=== PATIENT | female | born 1990 | race Caucasian/White ===

== ENCOUNTER → 2019-02-18 | Outpatient (CLI) | payer OTHER ==
--- NOTE | 2019-02-18 15:11 | Diagnostic Imaging Report ---
PROCEDURE: US Non-ob pelvis comp/trans. TECHNIQUE: Multiple realtime grayscale images were obtained of the pelvis in various projections endovaginally. Transabdominal imaging was also performed. INDICATION: Dyspareunia. FINDINGS: Uterus measures 7.4 x 5.8 x 3.7 cm. Endometrium is 3 mm in thickness. No myometrial mass is detected. Right ovary measures 4.3 x 3.0 x 2.4 cm and the left ovary measures 3.9 x 3.3 x 2.1 cm. There is blood flow to both ovaries. There are small partially collapsed cysts involving the right ovary approximately 12 mm and 15 mm in size. No adnexal mass or free fluid is seen. IMPRESSION: Essentially unremarkable pelvic ultrasound. Dictated by: Dictated on workstation # [id number]
== END ==
LOC: RAD 11:34
PROVIDERS: ATTEND Obstetrics & Gynecology
DX: N94.10 Unspecified dyspareunia (principal); N93.9 Abnormal uterine and vaginal bleeding, unspecified
CPT/HCPCS: 76830; 76856

== ENCOUNTER → 2019-09-23 | Outpatient (CLI) | payer OTHER ==
[2019-09-23 09:18] LABS: BILIRUBIN,URINE NEGATIVE (NEGATIVE); CLARITY,URINE CLEAR; COLOR,URINE YELLOW; GLUCOSE, URINE (UA) NEGATIVE (NEGATIVE); KETONES,URINE NEGATIVE (NEGATIVE); LEUKOCYTE ESTERASE ,URINE NEGATIVE (NEGATIVE); NITRITE,URINE NEGATIVE (NEGATIVE); PH,URINE 6.5 (5-9); PROTEIN,URINE NEGATIVE (NEGATIVE)
[2019-09-23 09:19] LABS: BACTERIA,URINE TRACE /HPF; RBC,URINE RARE /HPF; SQUAMOUS EPITHELIAL CELL,UR RARE /HPF; WBC,URINE RARE /HPF
== END ==
LOC: LAB FS 08:49
PROVIDERS: ATTEND Obstetrics & Gynecology
DX: R39.15 Urgency of urination (principal)
CPT/HCPCS: 81000; 87077; 87088

== ENCOUNTER → 2019-10-28 | Outpatient (CLI) | payer OTHER ==
--- NOTE | 2019-10-28 17:10 | Diagnostic Imaging Report ---
INDICATION: survey. TECHNIQUE: Multiple real-time grayscale images were obtained over the gravid uterus. COMPARISON: None FINDINGS: There is a single live fetus in breech presentation. heart rate was recorded at 132 bpm. Placenta is anterior. Amniotic fluid volume is normal. Cervical length is 3.7 cm. survey demonstrates kidneys, bladder and stomach to be unremarkable. brain is unremarkable. There is a four-chamber heart. There is a three-vessel cord with normal insertion. spine is unremarkable. Biometrical measurements are as follows: Biparietal 4.80 cm, age 20 weeks 4 days. Head circumference 19.54 cm, age 21 weeks 6 days. Abdominal circumference 15.96 cm, age 21 weeks 1 days. Femur length 3.52 cm, age 21 weeks 1 days. Sonographic estimate age: 21 weeks 2 days. Sonographic estimated date of delivery: 03/07/20. Estimated Weight: 402 gm (+/- 59 gm). LMP percentile: 60%. heart rate: 132 beats per minute. number: 1 of 1. IMPRESSION: Single live IUP 21 weeks 2 days gestational age. The estimated date of confinement sonographically is 03/07/2020. Dictated by: Dictated on workstation # [id number]
== END ==
LOC: RAD 14:39
PROVIDERS: ATTEND Obstetrics & Gynecology
DX: Z36.89 Encounter for other specified antenatal screening (principal); Z3A.21 21 weeks gestation of pregnancy
CPT/HCPCS: 76805

== ENCOUNTER → 2020-01-04 | Outpatient (CLI) | payer OTHER ==
[2020-01-04 17:23] LABS: URINE CREATININE FOR RATIO 58 MG/DL (30-125); URINE PROTEIN FOR RATIO ONLY < 6 MG/DL (6-12)
== END ==
LOC: LABNPT 17:02
PROVIDERS: ATTEND Obstetrics & Gynecology
DX: O13.9 Gestational [pregnancy-induced] hypertension without significant proteinuria, unspecified trimester (principal)
CPT/HCPCS: 82570; 84156

== ENCOUNTER → 2020-02-09 | Outpatient (CLI) | payer OTHER ==
[~2020-02-09] MED LIST: LABE200T7 PO; LEVO25TA5 PO
[2020-02-09 17:02] LABS: URINE CREATININE FOR RATIO 53 MG/DL (30-125)
[2020-02-09 17:03] LABS: URINE PROTEIN FOR RATIO ONLY < 6 MG/DL (6-12)
== END ==
LOC: LABNPT 16:10
PROVIDERS: ATTEND Obstetrics & Gynecology
DX: O13.4 Gestational [pregnancy-induced] hypertension without significant proteinuria, complicating childbirth (principal)
CPT/HCPCS: 82570; 84156

== ENCOUNTER 2020-02-10 19:36 | Outpatient (CLI) | payer OTHER ==
[~2020-02-10] VITALS: Ht 175.3 cm; Wt 151.3 kg
--- NOTE | 2020-02-10 19:30 | NUR ---
REBEKAH CORLEY presented to unit via AMBULATORY from ED, accompanied by ADULT MALE, with c/o INCREASED BP. REBEKAH CORLEY weighed, gowned, voided, and to bed. EFHM and TOCO applied, VS taken. REBEKAH CORLEY oriented to bed controls, call light, TV, heat, and A/C controls. above and further assessments carried out per PRECIOUS RYAN
[2020-02-10] MEDS ORDERED: LABE200T7 PO ×2 (19:41)
[2020-02-10] MEDS ORDERED: LEVO25TA5 PO ×2 (19:45)
[2020-02-10 19:52] LABS: BILIRUBIN,URINE NEGATIVE (NEGATIVE); CLARITY,URINE CLEAR; COLOR,URINE YELLOW; GLUCOSE, URINE (UA) NEGATIVE (NEGATIVE); KETONES,URINE NEGATIVE (NEGATIVE); LEUKOCYTE ESTERASE ,URINE NEGATIVE (NEGATIVE); NITRITE,URINE NEGATIVE (NEGATIVE); PROTEIN,URINE NEGATIVE (NEGATIVE)
[2020-02-10 19:57] LABS: BACTERIA,URINE FEW /HPF; WBC,URINE 0-2 /HPF
[2020-02-10 19:58] VITALS: BP 161/95
[2020-02-10 20:10] VITALS: BP 148/83
--- NOTE | 2020-02-10 20:24 | NUR ---
Dr. Hart called about pt. Informed that pt presents because of elevated blood pressures. Home and current vitals and B/P's reviewed. Informed that pt has no other symptoms of elevated B/P's. Informed that pt was seen in the office yesterday and Dr. Haywood ran pre-eclamptic panal and urine, and pt states that "nurse called and said that all labs were good." Dr. Haywood placed pt on labetalol 200mg TID. Dr. Hart orders pt to have evening dose of Labetalol and to check B/P approx 30 minutes after dose. Continue to watch pt at this time.
[2020-02-10] MEDS ORDERED: LABETALOL 200 MG (NORMODYNE) TAB PO ONE ×2 (20:30)
--- NOTE | 2020-02-10 22:03 | NUR ---
called unit, requesting bp be taken and dr updated. 2206: notified of 164/91 bp and pulse 64 plan for pt to stay all night, regular diet and lab work.
[2020-02-10 22:05] VITALS: BP 164/91
[2020-02-10 22:22] VITALS: BP 174/98
[2020-02-10 23:17] LABS: BASOPHILS % (AUTO) 0 % (0-10); EOSINOPHILS % (AUTO) 0 % (0-10); HEMATOCRIT 35 % (35-52); HEMOGLOBIN 11.9 g/dL (11.5-16.0); LYMPHOCYTES # (AUTO) 1.9 10^3/uL (1.0-4.0); LYMPHOCYTES % (AUTO) 22 % (12-44); MEAN CORPUSCULAR HEMOGLOBIN 29 pg (25-34); MEAN CORPUSCULAR HGB CONC 34 g/dL (32-36); MEAN CORPUSCULAR VOLUME 86 fL (80-99); MEAN PLATELET VOLUME 11.6 fL (9.0-12.2); MONOCYTES # (AUTO) 0.6 10^3/uL (0.0-1.0); MONOCYTES % (AUTO) 7 % (0-12); NEUTROPHILS % (AUTO) 71 % (42-75); PLATELET COUNT 173 10^3/uL (130-400); WHITE BLOOD COUNT 8.5 10^3/uL (4.3-11.0)
[2020-02-10 23:25] VITALS: BP 139/83
[2020-02-10 23:25] LABS: ALBUMIN 3.1 GM/DL (3.2-4.5); CHLORIDE 108 MMOL/L (98-107); POTASSIUM 3.6 MMOL/L (3.6-5.0); SODIUM 138 MMOL/L (135-145)
[2020-02-10 23:26] LABS: CALCIUM 8.6 MG/DL (8.5-10.1)
[2020-02-10 23:27] LABS: GLUCOSE 86 MG/DL (70-105); TOTAL PROTEIN 6.1 GM/DL (6.4-8.2)
[2020-02-10 23:29] LABS: BILIRUBIN,TOTAL 0.3 MG/DL (0.1-1.0); CARBON DIOXIDE 19 MMOL/L (21-32)
[2020-02-10 23:31] LABS: ALKALINE PHOSPHATASE 81 U/L (40-136); CREATININE SERUM 0.72 MG/DL (0.60-1.30); GFR ESTIMATED > 60
[2020-02-10 23:32] LABS: BUN/CREATININE RATIO 13
[2020-02-10 23:34] LABS: ALANINE AMINOTRANSFERASE 25 U/L (0-55); URIC ACID 6.7 MG/DL (2.6-7.2)
[2020-02-11] VITALS (9 sets, daily range): BP systolic 113–174; BP diastolic 69–105
--- NOTE | 2020-02-11 06:46 | NUR ---
Dr. Hart called with updated B/P's throughout the night and protein creatinine ratio. states that she will contact Dr. Haywood for further management and that pt. needs to start labetalol 200mg BID while she is here.
--- NOTE | 2020-02-11 07:09 | NUR ---
Dr. Hart called and states that pt can be discharged on bedrest. Pt. should keep her appointment with Dr. Haywood this week and continue medications.
--- NOTE | 2020-02-11 07:45 | NUR ---
Discharge instructions explained, signed and copy to patient. pt verbalized understanding of instructions and questions answered. Pt up to get dressed.
--- NOTE | 2020-02-11 07:50 | NUR ---
Discharged to home. Ambulates self downstairs to private vehicle with belongings in hand. Accompanied by s.o.
--- NOTE | 2020-02-13 09:19 | Physician Query-Final Dx ---
Clinic Account Progress/Dx Physician Query: Please give diagnosis Please include # weeks gestation Date of Service Feb 10, 2020 at 19:36 EUGENE HUSSEIN Feb 13, 2020 09:19
== END 2020-02-11 07:50 | disposition home or self-care (01) ==
LOC: WSo 19:36 → LDRP 02-11 07:43 → WSo 02-11 07:50
PROVIDERS: ATTEND Obstetrics & Gynecology
DX: Z34.90 Encounter for supervision of normal pregnancy, unspecified, unspecified trimester (principal); Z3A.00 Weeks of gestation of pregnancy not specified
CPT/HCPCS: 36415; 80053; 81000; 82570; 83615; 84156; 84550; 85025; 87088; 99213

== ENCOUNTER 2020-02-19 18:29 | Inpatient (IN) | payer OTHER ==
[2020-02-19] VITALS (9 sets, daily range): BP systolic 152–182; BP diastolic 93–128
[~2020-02-19] VITALS: Ht 175.3 cm; Wt 150.9 kg
--- NOTE | 2020-02-19 18:45 | NUR ---
REBEKAH CORLEY presented to unit via ambulation from ED, accompanied by ,for scheduled IOL. Pt. weighed, gowned, voided, and to bed. EFHM and TOCO applied, VS taken. Pt. oriented to bed controls, call light, TV, heat, and A/C controls.
--- NOTE | 2020-02-19 19:00 | NUR ---
admission paperwork explained and filled out.
--- NOTE | 2020-02-19 19:12 | NUR ---
report given to SHELBY New.
[2020-02-19] MEDS ORDERED: D5 LR IV SOLUTION 1,000 ML IV ONE (19:14)
[2020-02-19] MEDS ORDERED: AMPICILLIN FOR IV USE 2,000 MG in WATER (STERILE) FOR INJECTION 14.8 ML IV SCH (19:43)
[2020-02-19] MEDS ORDERED: MISOPROSTOL 100 MCG (CYTOTEC) TAB PO ONE (19:45)
[2020-02-19] MEDS ORDERED: LIDOCAINE/EPI 2% 1:200,00 (XYLOCAINE) 10 ML VIAL INJ PRN (19:45)
[2020-02-19 19:50] LABS: BASOPHILS % (AUTO) 0 % (0-10); EOSINOPHILS % (AUTO) 0 % (0-10); HEMATOCRIT 37 % (35-52); HEMOGLOBIN 12.8 g/dL (11.5-16.0); LYMPHOCYTES # (AUTO) 1.6 10^3/uL (1.0-4.0); LYMPHOCYTES % (AUTO) 18 % (12-44); MEAN CORPUSCULAR HEMOGLOBIN 29 pg (25-34); MEAN CORPUSCULAR HGB CONC 34 g/dL (32-36); MEAN CORPUSCULAR VOLUME 85 fL (80-99); MONOCYTES # (AUTO) 0.6 10^3/uL (0.0-1.0); MONOCYTES % (AUTO) 6 % (0-12); NEUTROPHILS % (AUTO) 76 % (42-75); PLATELET COUNT 191 10^3/uL (130-400); WHITE BLOOD COUNT 9.3 10^3/uL (4.3-11.0)
[2020-02-19] MEDS ORDERED: MISOPROSTOL 100 MCG (CYTOTEC) TAB ONE (20:00)
[2020-02-19] MEDS ORDERED: LABETALOL 200 MG (NORMODYNE) TAB PO ONE (20:01)
[2020-02-19 20:02] LABS: BILIRUBIN,URINE NEGATIVE (NEGATIVE); CLARITY,URINE CLEAR; COLOR,URINE YELLOW; GLUCOSE, URINE (UA) NEGATIVE (NEGATIVE); KETONES,URINE NEGATIVE (NEGATIVE); LEUKOCYTE ESTERASE ,URINE NEGATIVE (NEGATIVE); NITRITE,URINE NEGATIVE (NEGATIVE); PROTEIN,URINE 2+ (NEGATIVE)
[2020-02-19 20:05] LABS: ALANINE AMINOTRANSFERASE 20 U/L (0-55); ALBUMIN 3.3 GM/DL (3.2-4.5); ALKALINE PHOSPHATASE 94 U/L (40-136); BILIRUBIN,TOTAL 0.3 MG/DL (0.1-1.0); BUN/CREATININE RATIO 13; CALCIUM 8.5 MG/DL (8.5-10.1); CARBON DIOXIDE 18 MMOL/L (21-32); CHLORIDE 107 MMOL/L (98-107); CREATININE SERUM 0.85 MG/DL (0.60-1.30); GFR ESTIMATED > 60; GLUCOSE 114 MG/DL (70-105); POTASSIUM 3.5 MMOL/L (3.6-5.0); SODIUM 138 MMOL/L (135-145); TOTAL PROTEIN 6.6 GM/DL (6.4-8.2); URIC ACID 6.8 MG/DL (2.6-7.2)
[2020-02-19 20:06] LABS: BACTERIA,URINE MODERATE /HPF; RBC,URINE RARE /HPF; WBC,URINE 0-2 /HPF
[2020-02-19] MEDS: LABETALOL 200 MG (NORMODYNE) TAB PO SCH (20:09)
[2020-02-19] MEDS: D5 LR IV SOLUTION 1,000 ML IV SCH (20:23)
[2020-02-19] MEDS ORDERED: MAGNESIUM 4 GM/100 ML IVPB 100 ML IV ONE (23:31)
[2020-02-19] MEDS ORDERED: MAGNESIUM SULFATE DRIP 500 ML IV ONE (23:32)
[2020-02-19] MEDS ORDERED: MAGNESIUM 4 GM/100 ML IVPB 100 ML IV SCH (23:45)
[2020-02-19] MEDS ORDERED: CALCIUM GLUC. 10% 4.65 MEQ/10 ML VIAL IV PRN (23:45)
[2020-02-19] MEDS ORDERED: AMPICILLIN 2,000 MG/14.8 ML (IV USE) ONE (23:49)
[2020-02-19] MEDS ORDERED: CALCIUM GLUC. 10% 4.65 MEQ/10 ML VIAL ONE (23:49)
[2020-02-19] MEDS ORDERED: WATER (STERILE) FOR INJECTION 20 ML ONE (23:49)
[2020-02-20] VITALS (66 sets, daily range): BP systolic 117–227; BP diastolic 57–115
[2020-02-20] MEDS: MISOPROSTOL 100 MCG (CYTOTEC) TAB PO SCH ×2 (00:03→19:23)
[2020-02-20] MEDS: MAGNESIUM SULFATE DRIP 500 ML IV SCH ×3 (00:13→18:56)
[2020-02-20] MEDS ORDERED: LABETALOL HCL 20 MG/4 ML VIAL ONE ×2 (01:50→06:33)
[2020-02-20] MEDS ORDERED: LABETALOL HCL 20 MG/4 ML VIAL IV ONE ×4 (02:00→06:45)
[2020-02-20] MEDS: AMPICILLIN FOR IV USE 1,000 MG in WATER (STERILE) FOR INJECTION 7.4 ML IV SCH ×2 (04:18→08:38)
[2020-02-20] MEDS: D5 LR IV SOLUTION 1,000 ML IV SCH ×4 (04:19→20:29)
[2020-02-20] MEDS: LABETALOL 200 MG (NORMODYNE) TAB PO SCH ×4 (06:38→21:10)
[2020-02-20] MEDS ORDERED: fentaNYL 2 mcg/ml BUPIVA 0.125 100 ML ONE (07:32)
[2020-02-20] MEDS ORDERED: LACTATED RINGERS 1,000 ML IV ONE (07:37)
[2020-02-20] MEDS ORDERED: fentaNYL 2 mcg/ml BUPIVA 0.125 100 ML IV SCH (07:37)
--- NOTE | 2020-02-20 07:39 | NUR ---
here for epidural placement. Procedure explained, consent reviewed and signed by anesthesia. Questions answered to patient's satisfaction. Time out taken to verify correct patient/procedure. 0743- Patient up to side of bed, assisted into sitting position. Betadine prep done x3 and sterile drape applied. 0751-Local done, see anesthesia record. 0806- Test dose given, see anesthesia record for drug and dosage. Epidural catheter secured in place. Epidural placement complete. 0809- Assisted back into bed, monitors adjusted. Epidural dosed, see anesthesia record. Epidural of Sufenta/Fentanyl @12cc/hr stated per pump. Patient tolerated procedure well.
[2020-02-20] MEDS ORDERED: BUPIVACAINE 0.25% 30 ML (SENSORCAINE) VIAL ONE (07:40)
[2020-02-20] MEDS ORDERED: fentaNYL INJECTION 100 MCG/2 ML AMP ONE (07:40)
[2020-02-20] MEDS ORDERED: diphenhydrAMINE 50 MG/ML INJ (BENADRYL) IV PRN (07:45)
[2020-02-20] MEDS ORDERED: NALOXONE 0.4 MG/ML 1 ML (NARCAN) VIAL IV PRN (07:45)
[2020-02-20] MEDS ORDERED: CATHETER FLUSH 10 ML SYR IV PRN (07:45)
[2020-02-20] MEDS ORDERED: OXYTOCIN PRE-MIX DRIP 500 ML IV ONE (08:17)
[2020-02-20] MEDS ORDERED: OXYTOCIN PRE-MIX DRIP 500 ML IV SCH ×2 (08:23→12:15)
[2020-02-20] MEDS: ONDANSETRON 4 MG/2 ML (SDV) Z0FRAN IV PRN ×2 (08:36→13:03)
--- NOTE | 2020-02-20 08:48 | NUR ---
called to check on pt's BP's. update given, no new orders received @ time.
--- NOTE | 2020-02-20 10:26 | History & Physical-OB ---
OB - Chief Complaint & HPI Date/Time Date of Admission: Date of Admission: Feb 19, 2020 at 18:29 Date seen by a Provider: Feb 20, 2020 Time Seen by a Provider: 10:25 Chief Complaint/History OB-Reason for Admission/Chief: Induction of Labor Hx : 1 Hx Para: 0 Expected Date of Delivery: Mar 10, 2020 Gestational Age in Weeks: 37 Gestational Age in Days: 2 Indication for induction: medical complication Other reason for admission: Preeclampsia Admission Nurse Assessment Rev: Yes History of Labs GBS pos B neg Allergies and Home Medications Allergies Coded Allergies: No Known Drug Allergies (Unverified , 02/10/20) Home Medications Labetalol HCl 200 Mg Tablet, 200 MG PO TID, (Reported) Levothyroxine Sodium 25 Mcg Tablet, 25 MCG PO DAILY, (Reported) Patient Home Medication List Home Medication List Reviewed: Yes OB - History Hx of Present Care: Yes Ultrasounds: Normal mid trimester US Obstetrical Complications: Pre-eclampsia Medical Complications: None Delivery History Adverse Rxn to Tranfusion: No Patient Past Medical History n/a Social History/Family History Recent Infectious Disease Expo: No Alcohol Use: Denies Use Recreational Drug Use: Yes 2nd Hand Smoke Exposure: No OB - Admission Exam Physical Exam Vitals: Vital Signs 02/20/20 02/20/20 02/20/20 02:35 05:35 07:05 Temp 36.5 Pulse 85 Resp 18 B/P (MAP) 165/114 (131) Pulse Ox 98 O2 Delivery Room Air O2 Flow Rate 15.00 HEENT: NCAT Heart: Rhythm Normal Lungs: Clear Abdomen: Gravid Extremities: Normal Reflexes: Normal Cervical Dilatation: 2cm Effacement: 75% Station: -1 Membranes: Intact Heart Rate: 130's Accelerations: Accelerations Present Decelerations: No Decelerations Short Term Variability: Present Jail Variability: Average (6-25) Contractions on Admission: 6-10 Minutes Apart Intensity: Mild Labs Laboratory Tests Test 02/19/20 19:30 02/19/20 20:10 Range/Units White Blood Count 9.3 4.3-11.0 10^3/uL Red Blood Count 4.39 3.80-5.11 10^6/uL Hemoglobin 12.8 11.5-16.0 g/dL Hematocrit 37 35-52 % Mean Corpuscular Volume 85 80-99 fL Mean Corpuscular Hemoglobin 29 25-34 pg Mean Corpuscular Hemoglobin Concent 34 32-36 g/dL Red Cell Distribution Width 13.7 10.0-14.5 % Platelet Count 191 130-400 10^3/uL Mean Platelet Volume 12.0 9.0-12.2 fL Immature Granulocyte % (Auto) 0 % Neutrophils (%) (Auto) 76 H 42-75 % Lymphocytes (%) (Auto) 18 12-44 % Monocytes (%) (Auto) 6 0-12 % Eosinophils (%) (Auto) 0 0-10 % Basophils (%) (Auto) 0 0-10 % Neutrophils # (Auto) 7.0 1.8-7.8 10^3/uL Lymphocytes # (Auto) 1.6 1.0-4.0 10^3/uL Monocytes # (Auto) 0.6 0.0-1.0 10^3/uL Eosinophils # (Auto) 0.0 0.0-0.3 10^3/uL Basophils # (Auto) 0.0 0.0-0.1 10^3/uL Immature Granulocyte # (Auto) 0.0 0.0-0.1 10^3/uL Urine Color YELLOW Urine Clarity CLEAR Urine pH 6.0 5-9 Urine Specific [place] >=1.030 1.016-1.022 Urine Protein 145 H 6-12 MG/DL Urine Glucose (UA) NEGATIVE NEGATIVE Urine Ketones NEGATIVE NEGATIVE Urine Nitrite NEGATIVE NEGATIVE Urine Bilirubin NEGATIVE NEGATIVE Urine Urobilinogen 0.2 < = 1.0 MG/DL Urine Leukocyte Esterase NEGATIVE NEGATIVE Urine RBC (Auto) TRACE-L NEGATIVE Urine RBC RARE /HPF Urine WBC 0-2 /HPF Urine Squamous Epithelial Cells 5-10 /HPF Urine Crystals NONE /LPF Urine Bacteria MODERATE H /HPF Urine Casts NONE /LPF Urine Mucus SMALL H /LPF Urine Culture Indicated YES Urine Creatinine 220 H 30-125 MG/DL Urine Protein/Creatinine Ratio 0.66 Sodium Level 138 135-145 MMOL/L Potassium Level 3.5 L 3.6-5.0 MMOL/L Chloride Level 107 98-107 MMOL/L Carbon Dioxide Level 18 L 21-32 MMOL/L Anion Gap 13 5-14 MMOL/L Blood Urea Nitrogen 11 7-18 MG/DL Creatinine 0.85 0.60-1.30 MG/DL Estimat Glomerular Filtration Rate > 60 BUN/Creatinine Ratio 13 Glucose Level 114 H 70-105 MG/DL Uric Acid 6.8 2.6-7.2 MG/DL Calcium Level 8.5 8.5-10.1 MG/DL Corrected Calcium 9.1 8.5-10.1 MG/DL Magnesium Level 1.7 1.6-2.4 MG/DL Total Bilirubin 0.3 0.1-1.0 MG/DL Aspartate Amino Transf (AST/SGOT) 21 5-34 U/L Alanine Aminotransferase (ALT/SGPT) 20 0-55 U/L Alkaline Phosphatase 94 40-136 U/L Total Protein 6.6 6.4-8.2 GM/DL Albumin 3.3 3.2-4.5 GM/DL OB - Assessment/Plan/Diagnosis Assessment Assessment: induction of labor Admission Dx 29 yo @ 37.2 weeks Preeclampsia GBS pos Admission Status: Inpatient Order (span 2 midnights) Reason for Inpatient Admission: Induction of labor at term Plan Plan: Induction Induction Method: per Misoprostol Protocol SEBASTIÁN ESPOSITO DO Feb 20, 2020 10:26
[2020-02-20] MEDS ORDERED: TETANUS,DIPTH,PERTUSS P/F (BOOSTRIX) 0.5 ML VIAL IM ONE (12:15)
[2020-02-20] MEDS ORDERED: WITCH HAZEL(TUCKS) 40 EA JAR TOP PRN (12:15)
[2020-02-20] MEDS ORDERED: BENZOCAINE/MENTHOL (DERMOPLAST) 60 ML CAN TP PRN (12:15)
[2020-02-20] MEDS ORDERED: MEASLES,MUMPS,RUBELLA 1 EA INJ SQ ONE (12:15)
--- NOTE | 2020-02-20 12:23 | OB Labor & Delivery Record ---
L&D History Date of Service Date of Service: Feb 20, 2020 History Expected Date of Delivery: Mar 10, 2020 Gestational Age in Weeks: 37 Hx : 1 Hx Para: 0 Complications Events: Pre-Eclampsia, Routine care Operative Indications (Cesarea: N/A-Vaginal Delivery Intrapartal Events: None L&D Stage1 Monitors and Tracing Monitor Mode: Internal Heart Rate: 120 Monitor Accelerations: Uniform Monitor Decelerations: Variable Station: -2 Track Coach Variability: Average (6-10) Short Term Variability: Present Presentation: Vertex Vital Signs VS - Last 72 Hours, by Label 02/19/20 02/19/20 02/19/20 02/19/20 18:55 18:58 20:15 20:57 Temp 36.6 36.7 36.7 Pulse 111 109 90 90 Resp 18 18 18 B/P (MAP) 182/128 (146) 160/93 (115) 152/101 (118) Pulse Ox 98 98 97 O2 Delivery Room Air Room Air Room Air Room Air 02/19/20 02/19/20 02/19/20 02/19/20 21:15 22:15 23:15 23:30 Pulse 76 78 81 83 Resp 18 18 18 18 B/P (MAP) 155/102 (119) 162/101 (121) 173/101 (125) 177/109 (131) Pulse Ox 98 98 O2 Delivery Room Air Room Air Room Air Room Air 02/19/20 02/19/20 02/20/20 02/20/20 23:45 23:45 00:00 00:00 Pulse 94 94 87 87 Resp 18 18 B/P (MAP) 182/116 (138) 182/116 (138) 150/92 (111) 150/92 (111) Pulse Ox 97 97 O2 Delivery Room Air Room Air 02/20/20 02/20/20 02/20/20 02/20/20 00:15 00:30 00:45 01:00 Pulse 84 82 89 83 Resp 18 B/P (MAP) 159/91 (113) 169/95 (119) 158/95 (116) 158/95 (116) Pulse Ox 96 O2 Delivery Room Air 02/20/20 02/20/20 02/20/20 02/20/20 01:15 01:45 01:45 02:00 Pulse 80 109 109 110 Resp 18 18 18 18 B/P (MAP) 143/84 (103) 192/106 (134) 192/106 (134) 182/96 (124) Pulse Ox 100 O2 Delivery Non Rebreather O2 Flow Rate 15.00 02/20/20 02/20/20 02/20/20 02/20/20 02:00 02:05 02:15 02:25 Temp 36.3 Pulse 110 88 92 96 Resp 18 18 18 18 B/P (MAP) 182/96 (124) 181/87 (118) 179/95 (123) 188/112 (137) Pulse Ox 99 100 98 97 O2 Delivery Non Rebreather Non Rebreather Non Rebreather Non Rebreather O2 Flow Rate 15.00 15.00 15.00 15.00 02/20/20 02/20/20 02/20/20 02/20/20 02:30 02:35 03:20 03:30 Pulse 98 98 86 88 Resp 18 18 18 18 B/P (MAP) 176/108 (130) 176/108 (130) 159/104 (122) 153/106 (122) Pulse Ox 97 97 O2 Delivery Non Rebreather Room Air O2 Flow Rate 15.00 02/20/20 02/20/20 02/20/20 02/20/20 03:35 04:30 04:35 05:05 Pulse 88 78 78 79 Resp 18 18 18 18 B/P (MAP) 153/106 (122) 163/100 (121) 163/100 (121) 148/95 (112) Pulse Ox 97 97 96 O2 Delivery Room Air Room Air Room Air 02/20/20 02/20/20 02/20/20 02/20/20 05:30 05:35 05:50 06:10 Temp 36.5 Pulse 78 90 88 85 Resp 18 18 18 18 B/P (MAP) 168/107 (127) 168/107 (127) 165/103 (123) 164/89 (114) Pulse Ox 98 97 98 O2 Delivery Room Air Room Air Room Air 02/20/20 02/20/20 02/20/20 02/20/20 06:30 06:35 07:05 07:20 Pulse 86 86 85 89 Resp 18 18 18 18 B/P (MAP) 169/111 (130) 169/111 (130) 165/114 (131) 178/114 (135) Pulse Ox 98 98 97 O2 Delivery Room Air Room Air Room Air 02/20/20 02/20/20 02/20/20 02/20/20 07:30 07:45 07:50 07:55 Pulse 85 88 90 91 Resp 18 18 18 18 B/P (MAP) 165/114 (131) 188/107 (134) 186/101 (129) 174/105 (128) Pulse Ox 98 98 96 96 O2 Delivery Room Air Room Air Room Air Room Air 02/20/20 02/20/20 02/20/20 02/20/20 08:00 08:05 08:10 08:15 Temp 36.0 Pulse 96 88 82 92 Resp 18 18 18 18 B/P (MAP) 174/104 (127) 158/102 (120) 168/106 (126) 139/95 (110) Pulse Ox 96 97 98 97 O2 Delivery Room Air Room Air Room Air Room Air 02/20/20 02/20/20 02/20/20 02/20/20 08:30 08:45 09:00 09:15 Pulse 79 79 72 78 Resp 18 18 18 18 B/P (MAP) 139/95 (110) 152/75 (100) 132/91 (105) 138/101 (113) Pulse Ox 96 96 94 98 O2 Delivery Room Air Room Air Room Air Room Air 02/20/20 02/20/20 02/20/20 02/20/20 09:30 09:45 10:00 10:15 Pulse 71 77 89 83 Resp 18 18 18 18 B/P (MAP) 147/99 (115) 135/92 (106) 149/100 (116) 117/57 (77) Pulse Ox 97 97 98 99 O2 Delivery Room Air Room Air Room Air Room Air 02/20/20 10:30 Pulse 78 Resp 18 B/P (MAP) 156/99 (118) Pulse Ox 98 O2 Delivery Room Air Rupture of Membranes Spontaneous Ruture of Membrane: No Amniotic Membrane Rupture Time: 714 Amniotic Membrane Fluid Desc.: Clear Vaginal Bleeding Description: Normal Show Induction/Anesthesia Epidural Cath Placement - Time: 804 Progress/Notes Patient admitted for induction of labor due to PreE. BP control was limited overnight as PO and IV labetalol was given to limit BP elevation. Misoprostol given overnight PO, followed by AROM and Pitocin this am. Epidural received this AM after AROM and she rapidly progressed to complete and +2 station at which point bradycardia was noted, and patient was prepped for urgent delivery L&D Stage2 Stage Two Stage II Date: Feb 20, 2020 Monitors and Tracing Monitor Mode: Internal Heart Rate: 120 Monitor Accelerations: None Monitor Decelerations: Prolonged Mcc Variability: Average (6-10) Short Term Variability: Present Position: Right Occiput Anterior Presentation: Vertex Signs of Distress by FHT Signs of Distress Due due bradycardia, and need for urgent delivery, RML episiotomy performed, and Kiwi was placed at the flexion point on the midsagital suture line. Suction appled to 50 mmHg with the next push, the head was guided with gentle traction and extension over the RML perineum. Suction is then released. Cord Descript/Complications Cord Vessel Description: 3 Vessels Complications nuchal cord reduced x 1 Delivery Type Infant Delivery Method: Low Vacuum Extraction Anterior Shoulder: Right Episiotomy/Perineal Laceration Laceraction(s)/Extensions: No Episiotomy Description: Right Mediolateral Degree (describe repair) RML repaired with 3-0 and 2-0 vicryl in usual fashion. Condition of Infant Delivery Notes live female infant with weight and apgars pending. Condition of Condition of : Living Resuscitation Resuscitation: N/A - Spontaneous Resp L&D Stage3 Stage Three Stage III Date: Feb 20, 2020 Pictocin Pitocin Administration mu/min: 4 Pitocin ml/hr: 4 Pitocin Administration Comment: 30 mu wide open at delivery of placenta Placenta Delivery Placenta Delivery: Spontaneous Delivery Summary Summary Estimated blood loss (mL): 350 Attending at delivery: Sebastián Esposito DO Condition of Delivery Examined: Cervix Examined, Uterus Explored Post Hemorrhage: No Condition of Mother stable Condition of Infant (s) stable SEBASTIÁN ESPOSITO DO Feb 20, 2020 12:23
[2020-02-20] MEDS ORDERED: IBUPROFEN 600 MG (MOTRIN) TAB PO SCH (12:30)
[2020-02-20] MEDS ORDERED: HYDROcodone/APAP 5 MG/325 MG (LORTAB) TAB PO PRN (12:30)
--- NOTE | 2020-02-20 13:04 | NUR ---
this RN into bedside. c/o mild RUSSELL after delivery, becoming worse with change of position to HF.RUSSELL in frontal area, "voodoo to voodoo", rates 2 6 on 1-10 pain scale. vs taken. BP cuff adjusted. BP retaken.
--- NOTE | 2020-02-20 13:07 | NUR ---
was called r/t BP's. new orders received to hold current dose of Motrin, given toradol 30mg IV x1 now.
[2020-02-20] MEDS ORDERED: KETOROLAC 30 MG/ML VIAL IVP ONE (13:15)
[2020-02-20] MEDS ORDERED: KETOROLAC 30 MG/ML VIAL ONE (13:21)
--- NOTE | 2020-02-20 14:00 | NUR ---
FFu/0. moderate rubra noted. jaswinder-care offered. reports RUSSELL and nausea better. and remains @ side. will cont to monitor.
[2020-02-20] MEDS: CATHETER FLUSH 10 ML SYR IV SCH ×2 (15:31→21:17)
--- NOTE | 2020-02-20 16:55 | NUR ---
FFu/0. lt rubra noted, no clots expressed. jaswinder-care offered. v-pad and panties in place. pt transferred to room 309 via w/c with this RN and @ side. call light within reach. familiarized with room surroundings. will cont to monitor.
--- NOTE | 2020-02-20 19:18 | NUR ---
report given to SHELBY Johnson.
[2020-02-20] MEDS ORDERED: MISOPROSTOL 100 MCG (CYTOTEC) TAB PO ONE (20:09)
[2020-02-20] MEDS: DOCUSATE SODIUM 100 MG (COLACE) CAP PO SCH (20:12)
[2020-02-20] MEDS: IBUPROFEN 600 MG (MOTRIN) TAB PO SCH (20:12)
[2020-02-21] VITALS (16 sets, daily range): BP systolic 121–146; BP diastolic 63–98
[2020-02-21] MEDS: IBUPROFEN 600 MG (MOTRIN) TAB PO SCH ×4 (01:44→21:18)
[2020-02-21] MEDS: MAGNESIUM SULFATE DRIP 500 ML IV SCH (04:11)
[2020-02-21] MEDS: CATHETER FLUSH 10 ML SYR IV SCH ×3 (06:36→21:19)
[2020-02-21 06:44] LABS: BASOPHILS % (AUTO) 0 % (0-10); EOSINOPHILS % (AUTO) 0 % (0-10); HEMATOCRIT 33 % (35-52); HEMOGLOBIN 11.1 g/dL (11.5-16.0); LYMPHOCYTES # (AUTO) 1.4 10^3/uL (1.0-4.0); LYMPHOCYTES % (AUTO) 15 % (12-44); MEAN CORPUSCULAR HEMOGLOBIN 29 pg (25-34); MEAN CORPUSCULAR HGB CONC 34 g/dL (32-36); MEAN CORPUSCULAR VOLUME 88 fL (80-99); MEAN PLATELET VOLUME 11.9 fL (9.0-12.2); MONOCYTES # (AUTO) 0.8 10^3/uL (0.0-1.0); MONOCYTES % (AUTO) 8 % (0-12); NEUTROPHILS # (AUTO) 7.3 10^3/uL (1.8-7.8); NEUTROPHILS % (AUTO) 77 % (42-75); PLATELET COUNT 182 10^3/uL (130-400); WHITE BLOOD COUNT 9.5 10^3/uL (4.3-11.0)
--- NOTE | 2020-02-21 07:24 | Postpartum Progress Note ---
Note Note Day # 1 Subjective: Patient is without complaints. Ambulating, voiding. Tolerating a regular diet without nausea or vomiting. Normal lochia. Pain is well controlled with oral pain medications. Objective: Physical Exam: General - Alert and oriented, no apparent distress Abdomen - Soft, appropriately tender to palpation, non-distended, fundus firm at umbilicus Extremities - no edema, negative Ignacio's bilaterally Assessment: PPD 1 VAVD Pre eclampsia Acute blood loss anemia Plan: Routine care. D/C brown and Magnesium today Continue PO labetalol Encourage breast feeding. Encourage ambulation. Ferrous sulfate supplementation. Plan for discharge tomorrow Vitals - Labs Vital Signs - I&O Vital Signs Date Time Temp Pulse Resp B/P (MAP) Pulse Ox O2 Delivery O2 Flow Rate FiO2 02/21/20 07:00 36.4 92 18 140/93 (109) 98 Room Air 02/21/20 06:00 36.8 88 18 126/83 (97) 98 Room Air 02/21/20 05:00 81 18 128/89 (102) 97 Room Air 02/21/20 04:00 36.6 97 18 128/79 (95) 98 Room Air 02/21/20 03:00 36.6 98 18 123/63 (83) 98 Room Air 02/21/20 02:00 104 18 146/93 (110) 99 Room Air 02/21/20 01:00 36.2 90 18 138/88 (105) 98 Room Air 02/21/20 00:00 86 18 121/75 (90) 97 Room Air 02/20/20 23:00 37.0 91 18 128/81 (97) 98 Room Air 02/20/20 22:00 98 18 142/93 (109) 97 Room Air 02/20/20 21:00 36.7 88 18 143/79 (100) 99 Room Air 02/20/20 20:00 36.6 98 18 127/81 (96) 97 Room Air 02/20/20 19:00 36.8 91 18 133/83 (100) 97 Room Air 02/20/20 18:50 92 18 144/90 (108) Room Air 02/20/20 17:10 36.7 95 18 136/89 (105) Room Air 02/20/20 16:00 80 18 122/73 (89) Room Air 02/20/20 15:00 92 18 144/92 (109) Room Air 02/20/20 14:00 35.8 90 18 143/87 (105) Room Air 02/20/20 13:45 82 18 140/84 (102) Room Air 02/20/20 13:30 83 18 144/87 (106) Room Air 02/20/20 13:15 86 18 146/84 (104) Room Air 02/20/20 13:05 87 18 153/104 (120) Room Air 02/20/20 13:00 91 18 160/106 (124) Room Air 02/20/20 12:45 98 18 129/94 (106) Room Air 02/20/20 12:30 91 18 144/98 (113) Room Air 02/20/20 12:15 97 18 135/92 (106) Room Air 02/20/20 12:00 96 18 134/83 (100) Room Air 02/20/20 11:30 35.2 91 18 100 Non Rebreather 15.00 02/20/20 11:20 92 18 165/115 (132) 100 Non Rebreather 15.00 02/20/20 11:15 35.2 91 18 100 Non Rebreather 15.00 02/20/20 11:09 100 Non Rebreather 15.00 02/20/20 11:00 87 18 227/112 (150) 99 Room Air 02/20/20 10:45 75 18 156/100 (118) 97 Room Air 02/20/20 10:30 78 18 156/99 (118) 98 Room Air 02/20/20 10:15 83 18 117/57 (77) 99 Room Air 02/20/20 10:00 89 18 149/100 (116) 98 Room Air 02/20/20 09:45 77 18 135/92 (106) 97 Room Air 02/20/20 09:30 71 18 147/99 (115) 97 Room Air 02/20/20 09:15 78 18 138/101 (113) 98 Room Air 02/20/20 09:00 72 18 132/91 (105) 94 Room Air 02/20/20 08:45 79 18 152/75 (100) 96 Room Air 02/20/20 08:30 79 18 139/95 (110) 96 Room Air 02/20/20 08:15 36.0 92 18 139/95 (110) 97 Room Air 02/20/20 08:10 82 18 168/106 (126) 98 Room Air 02/20/20 08:05 88 18 158/102 (120) 97 Room Air 02/20/20 08:00 96 18 174/104 (127) 96 Room Air 02/20/20 07:55 91 18 174/105 (128) 96 Room Air 02/20/20 07:50 90 18 186/101 (129) 96 Room Air 02/20/20 07:45 88 18 188/107 (134) 98 Room Air 02/20/20 07:30 85 18 165/114 (131) 98 Room Air I & O 02/21/20 07:00 Intake Total 4507.4 ml Output Total 2575 ml Balance 1932.4 ml Labs Laboratory Tests 02/21/20 06:19: White Blood Count 9.5, Red Blood Count 3.77L, Hemoglobin 11.1L, Hematocrit 33L, Mean Corpuscular Volume 88, Mean Corpuscular Hemoglobin 29, Mean Corpuscular Hemoglobin Concent 34, Red Cell Distribution Width 14.4, Platelet Count 182, Mean Platelet Volume 11.9, Immature Granulocyte % (Auto) 0, Neutrophils (%) (Auto) 77H, Lymphocytes (%) (Auto) 15, Monocytes (%) (Auto) 8, Eosinophils (%) (Auto) 0, Basophils (%) (Auto) 0, Neutrophils # (Auto) 7.3, Lymphocytes # (Auto) 1.4, Monocytes # (Auto) 0.8, Eosinophils # (Auto) 0.0, Basophils # (Auto) 0.0, Immature Granulocyte # (Auto) 0.0 Microbiology 02/19/20 Urine Culture - Final, Complete Gram Pos Mixed Bacterial Humera Strep agalactiae Group B SEBASTIÁN ESPOSITO DO Feb 21, 2020 07:24
--- NOTE | 2020-02-21 07:34 | Anesthesia-Regional Post-Op ---
Regional Patient Condition Mental Status: Alert, Oriented x3 Circulation: Same as Pre-Op Headache: Absent Sensation: Full Recovery Motor Block: Absent Post Op Complications Complications None Follow Up Care/Instructions Patient Instructions None needed. Anesthesia/Patient Condition Patient is doing well, no complaints, stable vital signs, no apparent adverse anesthesia problems. No complications reported per nursing. 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
--- NOTE | 2020-02-21 08:15 | NUR ---
Kiersten. ASSESSMENT COMPLETED. VSS. DR. ESPOSITO IN TO SEE PT.
[2020-02-21] MEDS: LABETALOL 200 MG (NORMODYNE) TAB PO SCH ×3 (08:37→21:18)
[2020-02-21] MEDS: DOCUSATE SODIUM 100 MG (COLACE) CAP PO SCH ×2 (08:37→21:18)
--- NOTE | 2020-02-21 12:45 | NUR ---
SITTING UP IN CHAIR HOLDING . S.O. AT BEDSIDE. WANTS TO SHOWER THIS AFTERNOON.
--- NOTE | 2020-02-21 14:55 | NUR ---
RHOGAM 1 VIAL IM IN LEFT VG SITE. SITE CLEAR.
--- NOTE | 2020-02-21 17:00 | NUR ---
CONTINUES TO DO WELL. ICE PACK GIVEN. CARING FOR IN ROOM. GOOD INTERACTION NOTED.
[2020-02-22 03:14] VITALS: BP 142/81
[2020-02-22] MEDS: IBUPROFEN 600 MG (MOTRIN) TAB PO SCH ×3 (03:14→14:30)
--- NOTE | 2020-02-22 07:59 | Postpartum Progress Note ---
Note Note Day # 2 Subjective: Patient is without complaints. Ambulating, voiding. Tolerating a regular diet without nausea or vomiting. Normal lochia. Pain is well controlled with oral pain medications. Objective: Physical Exam: General - Alert and oriented, no apparent distress Abdomen - Soft, appropriately tender to palpation, non-distended, fundus firm at umbilicus Extremities - no edema, negative Ignacio's bilaterally Assessment: PPD 2 VAVD\ PreE- BP stable Acute blood loss anemia Plan: Routine care. Encourage breast feeding. Encourage ambulation. Ferrous sulfate supplementation. Plan for discharge today w/ Labetalol 200 TID Vitals - Labs Vital Signs - I&O Vital Signs Date Time Temp Pulse Resp B/P (MAP) Pulse Ox O2 Delivery O2 Flow Rate FiO2 02/22/20 03:14 37.1 83 18 142/81 (101) 98 Room Air 02/21/20 21:18 36.8 87 18 146/94 (111) 98 Room Air 02/21/20 17:00 36.6 84 18 130/74 (92) 97 Room Air 02/21/20 13:00 36.6 88 18 126/86 (99) 97 Room Air 02/21/20 11:00 88 18 121/70 (87) 96 Room Air 02/21/20 10:00 84 18 124/83 (97) 98 Room Air 02/21/20 09:00 90 18 146/95 (112) 97 Room Air 02/21/20 08:34 36.6 86 18 136/89 (105) 98 Room Air 02/21/20 08:00 88 18 143/98 (113) 98 Room Air I & O 02/22/20 06:59 Intake Total 4654 ml Output Total 1375 ml Balance 3279 ml Labs Microbiology 02/19/20 Urine Culture - Final, Complete Gram Pos Mixed Bacterial Humera Strep agalactiae Group B SEBASTIÁN ESPOSITO DO Feb 22, 2020 07:59
[2020-02-22] MEDS ORDERED: LABE200T7 PO (08:00)
[2020-02-22] MEDS ORDERED: DCS100C PO (08:00)
[2020-02-22] MEDS ORDERED: ACHD5005 PO (08:00)
[2020-02-22] MEDS ORDERED: BENZ78AE5 TP (08:00)
[2020-02-22] MEDS ORDERED: IBUP-844 PO (08:00)
--- NOTE | 2020-02-22 08:03 | Discharge Inst-Women's Service ---
Discharge Inst-Women's Serv Depart Medication/Instructions New, Converted or Re-Newed RX: RX on Chart Final Diagnosis PPD 2 VAVD, PreE, Problems Reviewed?: Yes Consults/Follow Up Additional Follow Up: Yes Orders/Referrals Dr. Esposito in 6 weeks Activity Activity: Activity as Tolerated Driving Instructions: No Driving for 1 Week NO SMOKING: NO SMOKING Nothing Inside Vagina: No Douching, No [place], No Tampons Diet Discharge Diet: No Restrictions Symptoms to Report to : Bleeding Excessive, Pain Increased, Fever Over 101 Degrees F, Vaginal Bleeding Increase, Questions/Concerns For Any Problems or Questions: Contact Your Physician SEBASTIÁN ESPOSITO DO Feb 22, 2020 08:03
[2020-02-22 08:45] VITALS: BP 157/99
[2020-02-22] MEDS: LABETALOL 200 MG (NORMODYNE) TAB PO SCH ×2 (08:49→14:29)
[2020-02-22] MEDS: DOCUSATE SODIUM 100 MG (COLACE) CAP PO SCH (08:50)
[2020-02-22 14:06] VITALS: BP 157/99
--- NOTE | 2020-02-22 14:10 | NUR ---
Home instructions given. 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
== END 2020-02-22 14:41 | disposition home or self-care (01) | DRG 806 ==
LOC: LDRP 18:29
PROVIDERS: ADMIT Obstetrics & Gynecology; ATTEND Obstetrics & Gynecology
PROC: 3E0DXGC Introduction of Other Therapeutic Substance into Mouth and Pharynx, External Approach (ICD-10-PCS; 2020-02-19)
PROC: 10D07Z6 Extraction of Products of Conception, Vacuum, Via Natural or Artificial Opening (ICD-10-PCS; principal; 2020-02-20)
PROC: 0W8NXZZ Division of Female Perineum, External Approach (ICD-10-PCS; 2020-02-20)
DX: O14.94 Unspecified pre-eclampsia, complicating childbirth (principal); D62 Acute posthemorrhagic anemia; Z37.0 Single live birth; O76 Abnormality in fetal heart rate and rhythm complicating labor and delivery; O99.824 Streptococcus B carrier state complicating childbirth; O69.81X0 Labor and delivery complicated by cord around neck, without compression, not applicable or unspecified; O90.81 Anemia of the puerperium; Z20.828 Contact with and (suspected) exposure to other viral communicable diseases; Z3A.37 37 weeks gestation of pregnancy
CPT/HCPCS: 36415; 80053; 81000; 82570; 83033; 83735; 84156; 84550; 85025; 86850; 86900; 86901; 87088; 87635